=== PATIENT | female | born 1955 | race Caucasian/White ===

== ENCOUNTER → 2016-07-30 | Outpatient (CLI) | payer BC ==
--- NOTE | 2016-07-30 13:01 | EST ---
DATE OF SERVICE: 07/30/2016 AGE: 61Y SEX: F HT: 65 WT: 172 lbs. Protocol Sukumar: X Other: Stage: I Dur. of Exercise: 3:55 *Heart Rate Blood Pressure *Rest: 65 Rest: 123/74 * *Max. Achieved: 143 Maximum BP: 158/75 85% PMHR: 135 100% PMHR: 159 *METS: 5.2 INDICATIONS: Chest pain. MEDICATIONS: Baseline EKG revealed normal sinus rhythm without significant ST-T changes. Patient walked on standard Sukumar protocol for a total duration of nearly 4 minutes, achieved a maximum heart rate of 143 beats per minute, which is more than 85% of predicted maximal. There was a lot of artifact seen, which was a baseline artifact. Upsloping nonspecific ST segment changes were noted. They were equivocal for ischemia. In the recovery period at about 4 minutes, ST segment change was more obvious. Patient, however, did not have angina, complained of fatigue and shortness of breath. By EKG criteria, this is a positive stress test with limited exercise capacity without subjective symptoms of angina. If ischemia is strongly suspected, I would recommend that we repeat a nuclear scan.
--- NOTE | 2016-08-01 14:28 | MM ---
Reason for exam: screening (asymptomatic). Last mammogram was performed 2 years and 1 month ago. History: Patient is postmenopausal. Benign excisional biopsy of the left breast, 2009. Benign excisional biopsy of the left breast, 2004. Physical Findings: Nurse did not find any significant physical abnormalities on exam. MG Screening Mammo w CAD Bilateral CC and MLO view(s) were taken. Prior study comparison: June 28, 2014, bilateral MG diagnostic mammo w CAD [facility]. November 19, 2011, mammogram, performed at [facility]. The breast tissue is heterogeneously dense. This may lower the sensitivity of mammography. No significant changes when compared with prior studies. ASSESSMENT: Benign, BI-RAD 2 RECOMMENDATION: Routine screening mammogram of both breasts in 1 year.
== END | disposition home or self-care (01) ==
LOC: RADMAMWWP 09:50
PROVIDERS: ATTEND Family Medicine
DX: Z12.31 Encounter for screening mammogram for malignant neoplasm of breast (principal); R07.89 Other chest pain
CPT/HCPCS: 93017; G0202

== ENCOUNTER → 2016-08-07 | Outpatient (CLI) | payer BC ==
--- NOTE | 2016-08-07 10:55 | EST ---
DATE OF SERVICE: 08/07/2016 AGE: 61Y SEX: F HT: 5'5" WT: 170 lbs. Protocol Sukumar: X Other: Cardiolite Stage: I Dur. of Exercise: 5:16 *Heart Rate Blood Pressure *Rest: 68 Rest: 126/78 * *Max. Achieved: 140 Maximum BP: 160/63 85% PMHR: 135 100% PMHR: 159 *METS: 6.9 INDICATIONS: Chest pain. MEDICATIONS: Mrs. Vallejo is a 61-year-old female being evaluated for symptoms of chest pain and shortness of breath. Baseline EKG showed sinus rhythm with normal RI interval and normal QRS duration. Blood pressure at rest is 126/78, pulse rate is 68. Patient walked on the Sukumar protocol for 5 minutes 16 seconds, achieving a maximum heart rate of 140 with a blood pressure of 160/63. EKGs taken during and after the exercise did not reveal any significant changes from the baseline. Patient did not experience any chest pain. FINAL IMPRESSION: 1. Negative stress test. 2. Patient did not experience any chest pain. 3. No arrhythmias were detected. 4. Report on the nuclear images to be given by the radiologist.
--- NOTE | 2016-08-07 12:14 | NM ---
EXAMINATION TYPE: NM stress cardiolite complete DATE OF EXAM: 08/07/2016 11:03 AM COMPARISON: NONE HISTORY: Abnormal EKG per order. History of hypercholesteremia family history of heart attack present s with left-sided chest and shoulder pain per patient TECHNIQUE: After the intravenous administration of 10.69 mCi Tc 99m Sestamibi - Rest images obtained 45 minutes post injection. The patient exercised using a VANITA protocol and 1 minute prior to peak exercise was injected with 27.2 mCi Tc 99m Sestamibi - Stress images obtained 30 minutes post inject ion. FINDINGS: Targeted heart rate was achieved during performance of the study. Review of stress and rest SPECT south ges demonstrates no distinct perfusion abnormality. Gated analysis shows normal wall motion with an estimated left ventricular ejection fraction of 63 %. IMPRESSION: No scintigraphic evidence for reversible ischemia
== END | disposition home or self-care (01) ==
LOC: RADNMMAIN 08:20
PROVIDERS: ATTEND Family Medicine
DX: R94.39 Abnormal result of other cardiovascular function study (principal)
CPT/HCPCS: 93017; 78452; A9500

== ENCOUNTER 2020-04-16 22:14 | Emergency (ER) | payer MEDICARE, BC ==
--- NOTE | 2020-04-16 23:02 | ED ---
Female Urogenital HPI - General Chief complaint: Urogenital Stated complaint: Blood in urine Time Seen by Provider: 04/16/20 22:25 Source: patient Mode of arrival: ambulatory Limitations: no limitations - History of Present Illness Initial comments: Well appeariang 65yo female who does not endorse PMH presenting today for cc of blood, pain and frequency of urination. Pt states today she began to have dysuria and frequency of urination. she states she noticed blood and small clots in urine. pt states that she continues to have to go to restroom frequently. pt states she was concerned she had UTI pt admits to a pressure/pain lower middle abdomen. Denies flank or back pain. denies unilateral abdominal pain or hx of kidney stones. denies fevers, nausea or vomiting. Patient appears well nontoxic in no acute distress on arrival. she states she presented today instead of going to pcp because she has never had blood in her urine before. - Related Data Home Medications Medication Instructions Recorded Confirmed Mv-Min/Vit C/Glut/Lysine/Hc124 1 tab PO DAILY PRN 04/16/20 04/16/20 [Airborne Tablet Chewable] Previous Rx's Medication Instructions Recorded Cephalexin [Keflex] 500 mg PO Q6HR 7 Days #28 cap 04/17/20 Cephalexin [Keflex] 500 mg PO Q6HR 7 Days #28 cap 04/17/20 Allergies Allergy/AdvReac Type Severity Reaction Status Date / Time No Known Allergies Allergy Verified 04/16/20 22:56 Review of Systems ROS Statement: Those systems with pertinent positive or pertinent negative responses have been documented in the HPI. ROS Other: All systems not noted in ROS Statement are negative. Past Medical History Past Medical History: No Reported History History of Any Multi-Drug Resistant Organisms: None Reported Past Surgical History: No Surgical Hx Reported Past Psychological History: No Psychological Hx Reported Smoking Status: Former smoker Past Alcohol Use History: None Reported Past Drug Use History: None Reported General Exam - General Exam Comments Initial Comments: General: The patient is awake and alert, in no distress, and does not appear acutely ill. Eye: Pupils are equal, round and reactive to light, extra-ocular movements are intact. No nystagmus. There is normal conjunctiva bilaterally. No signs of icterus. Ears, nose, mouth and throat: There are moist mucous membranes and no oral lesions. Gastrointestinal: Soft, non-distended, pain to palpation of superior bladder margin otherwise abdomen nontender and is without masses or organomegaly noted. There is no rebound or guarding present. No CVA tenderness. Musculoskeletal: Normal ROM, no tenderness. Strength 5/5. Sensation intact. Pulses equal bilaterally 2+. Neurological: A&O x 3. CN II-XII intact grossly, There are no obvious motor or sensory deficits. Coordination appears grossly intact. Speech is normal. Skin: Skin is warm and dry and no rashes or lesions are noted. Psychiatric: Cooperative, appropriate mood & affect, normal judgment. Limitations: no limitations Course Vital Signs 04/16/20 04/17/20 22:16 01:01 Temperature 98.5 F 98.3 F Pulse Rate 92 87 Respiratory 18 17 Rate Blood Pressure 128/73 140/70 O2 Sat by Pulse 99 98 Oximetry Medical Decision Making - Medical Decision Making UA with pt described symptoms and PE findings concerning for hemorrhagic cystitis/UTI. Patient will be placed on keflex. is to return for flank/back pain and or fevers. pt agreeable to this care plan and discharge as well as attending. pt discharge appearing well. - Lab Data Lab Results 04/16/20 Range/Units 23:24 Urine Color Dark Red Urine Appearance Turbid H (Clear) Urine RBC >182 H (0-5) /hpf Urine WBC >182 H (0-5) /hpf Urine Bacteria Few H (None) /hpf Urine Mucus Many H (None) /hpf Urine Yeast (Budding) Many H (None) /hpf Disposition Clinical Impression: Hematuria, UTI (urinary tract infection) Disposition: HOME SELF-CARE Condition: Good Instructions (If sedation given, give patient instructions): Urinary Tract Infection in Women (ED) Additional Instructions: Please use medication as discussed. Please follow-up with family doctor in the next 2 days, urology in next 1-2 weeks. Please return to emergency room if the symptoms increase or worsen or for any other concerns. Prescriptions: Cephalexin [Keflex] 500 mg PO Q6HR 7 Days #28 cap Cephalexin [Keflex] 500 mg PO Q6HR 7 Days #28 cap Is patient prescribed a controlled substance at d/c from ED?: No Referrals: Desirae Franklin DO [Primary Care Provider] - 1-2 days Time of Disposition: 00:46
[2020-04-17 00:09] LABS: Bacteria,Urine Few /hpf; Budding Yeast,Urine Many /hpf; Mucus,Urine Many /hpf
[2020-04-17 00:41] LABS: Appearance,Urine Turbid (Clear); Color,Urine Dark Red; RBC,Urine >182 /hpf (0-5); WBC,Urine >182 /hpf (0-5)
[2020-04-17] MEDS ORDERED: cefTRIAXone 1,000 MG VIAL (IM USE) IM STA (00:43)
[2020-04-17] MEDS ORDERED: CEPHALEXIN 500MG STARTER PACK 4 CAP BTL PO STA (00:44)
[2020-04-17 01:01] VITALS: BP 140/70; PULSE 87; RESP 17; TEMP 98.3
== END 2020-04-17 01:02 | disposition home or self-care (01) ==
LOC: EC 22:14
DX: N39.0 Urinary tract infection, site not specified (principal); Z87.891 Personal history of nicotine dependence
CPT/HCPCS: 99283 ×2; 96372 ×2; 81001; 87086; 87077; 87186; J0696

== ENCOUNTER → 2020-08-27 | Outpatient (CLI) | payer BC ==
--- NOTE | 2020-08-29 10:59 | MM ---
Reason for exam: screening (asymptomatic). Last mammogram was performed 4 years and 1 month ago. History: Patient is postmenopausal. Benign excisional biopsy of the left breast, 2009. Benign excisional biopsy of the left breast, 2004. Physical Findings: A clinical breast exam by your physician is recommended on an annual basis and results should be correlated with mammographic findings. MG Screening Mammo w CAD Bilateral CC and MLO view(s) were taken. Prior study comparison: July 30, 2016, bilateral MG screening mammo w CAD. June 28, 2014, bilateral MG diagnostic mammo w CAD [facility]. The breast tissue is extremely dense which could obscure a lesion on mammography. No significant changes when compared with prior studies. ASSESSMENT: Benign, BI-RAD 2 RECOMMENDATION: Routine screening mammogram of both breasts in 1 year.
== END | disposition home or self-care (01) ==
LOC: RADMAMWWP 09:56
PROVIDERS: ATTEND Family Medicine
DX: Z12.31 Encounter for screening mammogram for malignant neoplasm of breast (principal); Z78.0 Asymptomatic menopausal state
CPT/HCPCS: 77067

== ENCOUNTER → 2021-09-12 | Outpatient (CLI) | payer BC ==
--- NOTE | 2021-09-12 09:01 | BD ---
EXAMINATION TYPE: Axial Bone Density DATE OF EXAM: 09/12/2021 COMPARISON: 06-28-2014 CLINICAL HISTORY: 66 years year old Female. ICD-10 CODE: M85.89 DISORDER OF BONE Height: 64.5IN Weight: 155 FRAX RISK QUESTIONS: RISK FACTORS HISTORY OF: Diet low in dairy products/other sources of calcium: YES Postmenopausal woman: MENOPAUSE AT 50 MEDICATIONS: Additional Medications: MULTIVITAMIN Additional History: EXAM MEASUREMENTS: Bone mineral densitometry was performed using the [employer] System. Bone mineral density as measured about the Lumbar spine is: ----- L1-L4(G/cm2): 0.878 T Score Values are as follows: ----- L1: -2.1 ----- L2: -2.8 ----- L3: -2.7 ----- L4: -2.5 ----- L1-L4: -2.5 Bone mineral density has: Decreased -11.5% since study of: 06-28-2017 Bone mineral density about the R hip (g/cm2): 0.699 Bone mineral density about the L hip (g/cm2): 0.682 T Score values are as follows: -----R Neck: -2.3 -----L Neck: -2.7 -----R Total: -2.4 -----L Total: -2.6 Bone mineral density has: Decreased -7.5% since study of: 06-28-2014 FRAX%s: The graph provided illustrates a 14.9% chance for a major osteoporotic fx and a 3.7% chance f or the hips probability for fx in 10 years time. IMPRESSION: Osteoporosis (T Score less than -2.5). There is increased fracture risk and therapy is usually indicated based on age. Re-Screen 1-2 years. NOTE: T-SCORE=SD OF THE YOUNG ADULT MEAN.
--- NOTE | 2021-09-13 07:45 | MM ---
Reason for Exam: Screening (asymptomatic). Last screening mammogram was performed 12 month(s) ago. Patient History: Menarche at age 17. First Full-Term at age 22. Postmenopausal. 2009, Benign Excisional Biopsy on the left side. 2004, Benign Excisional Biopsy on the left side. Risk Values: Mary 5 year model risk: 2.1%. NCI Lifetime model risk: 7.3%. Prior Study Comparison: 06/28/2014 Bilateral Diagnostic Mammogram, [facility]. 07/30/2016 Bilateral Screening Mammogram, [facility]. 08/27/2020 Bilateral Screening Mammogram, [facility]. Tissue Density: The breast tissue is extremely dense which could obscure a lesion on mammography. Findings: Analyzed By CAD. There is no suspicious group of microcalcifications or new suspicious mass in either breast. Overall Assessment: Negative, BI-RAD 1 Management: Screening Mammogram of both breasts in 1 year. A clinical breast exam by your physician is recommended on an annual basis and results should be correlated with mammographic findings. Electronically signed and approved by: René Maurice M.D. Radiologis
== END | disposition home or self-care (01) ==
LOC: RADMAMWWP 06:56
PROVIDERS: ATTEND Family Medicine
DX: Z12.31 Encounter for screening mammogram for malignant neoplasm of breast (principal); M85.89 Other specified disorders of bone density and structure, multiple sites; M81.0 Age-related osteoporosis without current pathological fracture; Z78.0 Asymptomatic menopausal state
CPT/HCPCS: 77063; 77067; 77080

== ENCOUNTER → 2022-09-18 | Outpatient (CLI) | payer MEDICARE ==
--- NOTE | 2022-09-19 07:01 | MM ---
Reason for Exam: Screening (asymptomatic). Last screening mammogram was performed 12 month(s) ago. Patient History: Menarche at age 17. First Full-Term at age 22. Postmenopausal. 2009, Benign Excisional Biopsy on the left side. 2004, Benign Excisional Biopsy on the left side. Risk Values: Mary 5 year model risk: 2.1%. NCI Lifetime model risk: 7.1%. Prior Study Comparison: 07/30/2016 Bilateral Screening Mammogram, [facility]. 08/27/2020 Bilateral Screening Mammogram, [facility]. 09/12/2021 Bilateral MG 3D screening mammo w/cad, [facility]. Tissue Density: The breast tissue is heterogeneously dense. This may lower the sensitivity of mammography. Findings: Analyzed By CAD. A few scattered and grouped tiny benign-appearing round calcifications throughout the bilateral breasts are redemonstrated. There is no suspicious group of microcalcifications or new suspicious mass in either breast. Overall Assessment: Benign, BI-RAD 2 Management: Screening Mammogram of both breasts in 1 year. Some advise bilateral breast ultrasound surveillance in patients with background dense tissue. Patient should continue monthly self-breast exams. A clinical breast exam by your physician is recommended on an annual basis. This exam should not preclude additional follow-up of suspicious palpable abnormalities. Note on Mary scores and lifetime risk: 1. A Mary score greater than 3% is considered moderate risk. If this is the case, consider specialist referral to assess eligibility for a risk reducing agent. 2. If overall lifetime risk for the development of breast cancer is 20% or higher, the patient may qualify for future screening with alternating mammogram and breast MRI. Electronically signed and approved by: Jose Maharaj M.D.
== END | disposition home or self-care (01) ==
LOC: RADMAMWWP 08:02
PROVIDERS: ATTEND Family Medicine
DX: Z12.31 Encounter for screening mammogram for malignant neoplasm of breast (principal); Z78.0 Asymptomatic menopausal state
CPT/HCPCS: 77063; 77067

== ENCOUNTER → 2023-06-26 | Outpatient (CLI) | payer MEDICARE ==
--- NOTE | 2023-06-26 09:33 | MM ---
Reason for Exam: Clinical finding. Last screening mammogram was performed 10 month(s) ago. Patient History: Menarche at age 17. First Full-Term at age 22. Postmenopausal. 2009, Benign Excisional Biopsy on the left side. 2004, Benign Excisional Biopsy on the left side. Risk Values: Mary 5 year model risk: 2.1%. NCI Lifetime model risk: 6.8%. Tissue Density: The breasts are heterogeneously dense, which may obscure small masses. Findings: Analyzed By CAD. Scattered benign consolidation seen bilaterally without suspicious cluster. No mass or distortion seen. No skin thickening noted. Manage clinically. Overall Assessment: Benign, BI-RAD 2 Management: Screening Mammogram of both breasts in 1 year. . Results were given to the patient verbally at the time of exam. Patient should continue monthly self-breast exams. A clinical breast exam by your physician is recommended on an annual basis. This exam should not preclude additional follow-up of suspicious palpable abnormalities. Note on Mary scores and lifetime risk: 1. A Mary score greater than 3% is considered moderate risk. If this is the case, consider specialist referral to assess eligibility for a risk reducing agent. 2. If overall lifetime risk for the development of breast cancer is 20% or higher, the patient may qualify for future screening with alternating mammogram and breast MRI. Electronically signed and approved by: René Maurice M.D. Radiologis
== END | disposition home or self-care (01) ==
LOC: RADMAMWWP 09:02
PROVIDERS: ATTEND Family Medicine
DX: R92.333 Mammographic heterogeneous density, bilateral breasts (principal); N64.4 Mastodynia; N64.53 Retraction of nipple; Z78.0 Asymptomatic menopausal state
CPT/HCPCS: 77066; G0279; 77062

== ENCOUNTER → 2023-09-29 | Outpatient (CLI) | payer MEDICARE ==
--- NOTE | 2023-10-04 16:37 | BD ---
EXAMINATION TYPE: Axial Bone Density DATE OF EXAM: 09/29/2023 CLINICAL HISTORY: 68 years old Female. ICD-10 CODE: Z78.0 ASYMPTOMATIC MENOPAUSAL STATE Height: 63.2 Weight: 160 FRAX RISK QUESTIONS: 3. Menopause before 45: no at 50 RISK FACTORS HISTORY OF: height loss, MEDICATIONS: multivitamin, fosamax Osteoporosis Medications: yes, fosamax for 2 yrs EXAM MEASUREMENTS: Bone mineral densitometry was performed using the [employer] System. Bone mineral density as measured about the Lumbar spine is: ----- L1-L4(G/cm2): 0.988 T Score Values are as follows: ----- L1: -1.7 ----- L2: -2.6 ----- L3: -2.2 ----- L4: -0.3 ----- L1-L4: -1.6 Z Score Values are as follows: ----- L1: -0.3 ----- L2: -1.2 ----- L3: -0.8 ----- L4: 1.1 ----- L1-L4: -0.2 Bone mineral density has: Increased 12.5% since study of: 09.12.2021 Bone mineral density about the R hip (g/cm2): 0.740 Bone mineral density about the L hip (g/cm2): 0.717 T Score values are as follows: -----R Neck: -2.3 -----L Neck: -2.5 -----R Total: -2.1 -----L Total: -2.3 Z Score values are as follows: -----R Neck: -0.9 -----L Neck: -1.0 -----R Total: -0.9 -----L Total: -1.1 Bone mineral density has: Increased 5.5% since study of: 09.12.2021 FRAX%s: The graph provided illustrates a 14.2% chance for a major osteoporotic fx and a 3.4% chance f or the hips probability for fx in 10 years time. IMPRESSION: Osteopenia (T Score between -2.5 and -1). There is slightly increased risk of fracture and the patient may be considered for treatment. Re-Screen 2-5 years. NOTE: T-SCORE=SD OF THE YOUNG ADULT MEAN.
== END | disposition home or self-care (01) ==
LOC: RADMAMWWP 09:05
PROVIDERS: ATTEND Family Medicine
DX: M81.0 Age-related osteoporosis without current pathological fracture (principal); M85.89 Other specified disorders of bone density and structure, multiple sites; Z78.0 Asymptomatic menopausal state
CPT/HCPCS: 77080

== ENCOUNTER → 2024-06-28 | Outpatient (CLI) | payer MEDICARE ==
--- NOTE | 2024-06-28 15:51 | MM ---
Reason for Exam: Screening (asymptomatic). Last screening mammogram was performed 12 month(s) ago. Patient History: Menarche at age 17. First Full-Term at age 22. Postmenopausal. 2009, Benign Excisional Biopsy on the left side. 2004, Benign Excisional Biopsy on the left side. Risk Values: Mary 5 year model risk: 2.1%. NCI Lifetime model risk: 6.5%. Prior Study Comparison: 07/30/2016 Bilateral Screening Mammogram, [facility]. 08/27/2020 Bilateral Screening Mammogram, [facility]. 09/12/2021 Bilateral MG 3D screening mammo w/cad, [facility]. 09/18/2022 Bilateral MG 3D screening mammo w/cad, [facility]. 06/26/2023 Bilateral MG 3D diag mammo w/cad [facility], [facility]. Tissue Density: The breasts are heterogeneously dense, which may obscure small masses. Findings: Analyzed By CAD. Regional punctate calcifications on both sides are unchanged. There is no suspicious group of microcalcifications or new suspicious mass in either breast. Overall Assessment: Benign, BI-RAD 2 Management: Screening Mammogram of both breasts in 1 year. Patient should continue monthly self-breast exams. A clinical breast exam by your physician is recommended on an annual basis. This exam should not preclude additional follow-up of suspicious palpable abnormalities. Note on Mary scores and lifetime risk: 1. A Mary score greater than 3% is considered moderate risk. If this is the case, consider specialist referral to assess eligibility for a risk reducing agent. 2. If overall lifetime risk for the development of breast cancer is 20% or higher, the patient may qualify for future screening with alternating mammogram and breast MRI. [facility], , 06/28/2024 3:49 PM. Electronically signed and approved by: Dusty Perry M.D. Radiologist
== END | disposition home or self-care (01) ==
LOC: RADMAMWWP 14:06
PROVIDERS: ATTEND Family Medicine
DX: Z12.31 Encounter for screening mammogram for malignant neoplasm of breast (principal); R92.333 Mammographic heterogeneous density, bilateral breasts; Z78.0 Asymptomatic menopausal state
CPT/HCPCS: 77063; 77067